=== PATIENT | female | born 1980 | race Two or more races ===

== ENCOUNTER 2022-02-04 16:10 | Emergency (ER) | payer MEDICAID, OTHER ==
[~2022-02-04] VITALS: Ht 162.6 cm; Wt 82.6 kg
[2022-02-04 18:36] VITALS: BP 128/67
[2022-02-04] MEDS ORDERED: ACETAMINOPHEN 325 MG TAB PO ONE (19:15)
[2022-02-04] MEDS ORDERED: IOHEXOL 300 MG/ML 100ML BOTTLE IJ ONE ×2 (19:16→20:19)
[2022-02-04] MEDS ORDERED: CYCL-837 PO (21:02)
[2022-02-04] MEDS ORDERED: IBUP800T27 PO (21:02)
== END 2022-02-04 21:25 | disposition home or self-care (01) ==
LOC: ER 16:10
DX: S46.912A Strain of unspecified muscle, fascia and tendon at shoulder and upper arm level, left arm, initial encounter (principal); S70.02XA Contusion of left hip, initial encounter; S20.212A Contusion of left front wall of thorax, initial encounter; V29.99XA Rider (driver) (passenger) of other motorcycle injured in unspecified traffic accident, initial encounter; Y93.89 Activity, other specified; Y92.89 Other specified places as the place of occurrence of the external cause; Y99.8 Other external cause status
CPT/HCPCS: 71101; 71250; 73030; 74176; 99284; Q9967